=== PATIENT | female | born 1985 | race Two or more races ===

== ENCOUNTER 2019-12-25 13:32 | Inpatient (IN) | payer BC ==
[2019-12-25] MEDS ORDERED: Ondansetron 4 MG/2 ML SDV IVPUSH PRN (13:56)
[2019-12-25] MEDS ORDERED: Sodium Chloride 0.9% 10 ML Syringe FLUSH PRN (13:56)
[2019-12-25] MEDS: Lactated Ringers 1,000 ML IV SCH ×4 (14:10→17:52)
[2019-12-25] MEDS ORDERED: fentaNYL 100 MCG/2 ML SDV EPIDUR PRN (14:18)
[2019-12-25] MEDS ORDERED: diphenhydrAMINE 50 MG/ML SDV IVPUSH PRN (14:18)
[2019-12-25] MEDS ORDERED: ePHEDrine 50 MG/ML SDV IVPUSH PRN (14:18)
[2019-12-25] MEDS ORDERED: Bupivacaine/fentaNYL/NS 100 ML Bag EPIDUR PRN (14:18)
[2019-12-25] MEDS ORDERED: fentaNYL 100 MCG/2 ML SDV ONE (14:20)
--- NOTE | 2019-12-25 14:43 | PCM.PREANE ---
Preanesthetic Assessment - Procedure Proposed Procedure: epidural - Anesthesia/Transfusion/Family Hx Anesthesia History: Prior Anesthesia Without Reaction Family History of Anesthesia Reaction: No Transfusion History: No Prior Transfusion(s) - Review of Systems General: No Symptoms Pulmonary: No Symptoms Cardiovascular: No Symptoms Gastrointestinal: Abdominal Pain (labor) Neurological: No Symptoms Other: Reports: None - Physical Assessment ASA Class: 2 Mental Status: Alert & Oriented x3 Airway Class: Mallampati = 1 Dentition: Reports: Normal Dentition Thyro-Mental Finger Breadths: 3 Mouth Opening Finger Breadths: 3 ROM/Head Extension: Full Lungs: Clear to Auscultation, Normal Respiratory Effort Cardiovascular: Regular Rate, Regular Rhythm - Lab Values: Laboratory Last Values WBC 7.06 K/mm3 (3.98-10.04) 12/25/19 14:09 RBC 3.82 M/mm3 (3.98-5.22) L 12/25/19 14:09 Hgb 12.8 gm/dl (11.2-15.7) 12/25/19 14:09 Hct 36.4 % (34.1-44.9) 12/25/19 14:09 MCV 95.3 fl (79.4-94.8) H D 12/25/19 14:09 MCH 33.5 pg (25.6-32.2) H 12/25/19 14:09 MCHC 35.2 g/dl (32.2-35.5) 12/25/19 14:09 RDW Std Deviation 43.1 fL (36.4-46.3) 12/25/19 14:09 Plt Count 264 K/mm3 (182-369) 12/25/19 14:09 MPV 9.9 fl (9.4-12.3) 12/25/19 14:09 Neut % (Auto) 70.6 % (34.0-71.1) 12/25/19 14:09 Lymph % (Auto) 23.9 % (19.3-51.7) 12/25/19 14:09 [place] % (Auto) 4.8 % (4.7-12.5) 12/25/19 14:09 Eos % (Auto) 0.3 (0.7-5.8) L 12/25/19 14:09 Baso % (Auto) 0.3 % (0.1-1.2) 12/25/19 14:09 Neut # (Auto) 4.98 K/mm3 (1.56-6.13) 12/25/19 14:09 Lymph # (Auto) 1.69 K/mm3 (1.18-3.74) 12/25/19 14:09 [place] # (Auto) 0.34 K/mm3 (0.24-0.36) 12/25/19 14:09 Eos # (Auto) 0.02 K/mm3 (0.04-0.36) L 12/25/19 14:09 Baso # (Auto) 0.02 K/mm3 (0.01-0.08) 12/25/19 14:09 - Allergies Allergies/Adverse Reactions: Allergies Allergy/AdvReac Type Severity Reaction Status Date / Time No Known Allergies Allergy Verified 05/29/19 16:03 - Anesthesia Plan Pre-Op Medication Ordered: None - Acknowledgements Anesthesia Type Planned: Epidural Pt an Appropriate Candidate for the Planned Anesthesia: Yes Alternatives and Risks of Anesthesia Discussed w Pt/Guardian: Yes Pt/Guardian Understands and Agrees with Anesthesia Plan: Yes PreAnesthesia Questionnaire - Past Health History Medical/Surgical History: Denies Medical/Surgical History Gastrointestinal History: Reports: GERD 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 2018 - HOME MEDS Home Medications: Home Meds Ferrous Sulfate [Iron] 325 mg PO DAILY 12/05/19 [History] #103/Iron Fumarate/Fa [ ] 1 each PO DAILY 12/05/19 [ History] metroNIDAZOLE [Flagyl] 500 mg PO BID 12/05/19 [History] - CURRENT (IN HOUSE) MEDS Current Meds: Current Medications Diphenhydramine HCl (Benadryl) 25 mg IVPUSH Q6H PRN PRN Reason: Itching Ephedrine Sulfate (Ephedrine Sulfate) 5 mg IVPUSH ASDIRECTED PRN PRN Reason: HYPOTENTSION Fentanyl (Sublimaze) 100 mcg EPIDUR Q3H PRN PRN Reason: Pain Last Admin: 12/25/19 14:34 Dose: 100 mcg Fentanyl/Bupivacaine HCl (Fentanyl/Bupivacaine/Ns 2 Mcg-0.125% 100 Ml) 100 ml EPIDUR CONTINUOUS PRN PRN Reason: Pain Last Admin: 12/25/19 14:37 Dose: 100 ml Lactated Ringer's (Ringers, Lactated) 1,000 mls @ 100 mls/hr IV ASDIRECTED FINN Last Admin: 12/25/19 14:34 Dose: 999 mls/hr Ondansetron HCl (Zofran) 4 mg IVPUSH Q4H PRN PRN Reason: Nausea/Vomiting Sodium Chloride (Saline Flush) 10 ml FLUSH ASDIRECTED PRN PRN Reason: Keep Vein Open Discontinued Medications Fentanyl (Sublimaze) Confirm Administered Dose 100 mcg .ROUTE .[facility] Stop: 12/25/19 14:21
[2019-12-25] MEDS ORDERED: Calcium Carbonate 500 MG Tab.Chew PO ONE (14:51)
[2019-12-25] MEDS ORDERED: Oxytocin/Lactated Ringers 10 UNIT/1,000 ML BAG IV SCH (16:30)
--- NOTE | 2019-12-25 17:39 | PCM.LDHP ---
L&D History of Present Illness - General Date of Service: 12/25/19 Admit Problem/Dx: Patient Status Order with Admit Dx/Problem 12/25/19 13:57 Patient Status [ADT] Routine Admission Diagnosis/Problem Admission Diagnosis/Problem 12/25/19 17:28 Adriana is a 34-year-old 1 para 0 female presently at 39-3/7 weeks gestational age with an ABAD of 12/29/2019 who is admitted to labor and delivery with spontaneous rupture membranes, active labor and progressive cervical dilation. Source of Information: Patient History Limitations: Reports: No Limitations - History of Present Illness Introduction:: Adriana is a 34-year-old 1 para 0 female presently at 39-3/7 weeks gestational age with an ABAD of 12/29/2019 who is admitted to labor and delivery with spontaneous rupture membranes, active labor and progressive cervical dilation.She reports she had spontaneous rupture membranes this a.m. at approximately 7:00 when she arose out of bed. She has continued to leak amniotic fluid.. She was seen in labor and delivery and was noted to have gross spontaneous rupture membranes with resultant clear amniotic fluid. She is laura upon admission. She is made good cervical change since her last evaluation in clinic. LICENSE ISSUER history: Patient is a 1 para 0. ABAD is 12/29/2019 as based upon an early ultrasound done at 9-3/7 weeks gestational age on 05/29/2019. It is supported by 2 other ultrasounds done on 06/14/2019 and 08/16/2019. Patient had menarche at age 16. Cycles every 30 days. She is using no control to time conception. LMP 03/29/2019. Positive hCG was on 05/03/2019. Patient reports no history of STDs in the past. No abnormal Pap smears noted in the past. course: Patient was seen early in the course of the at 9 weeks and 3 days on 05/29/2019. She is seen on a regular basis during the . She is a centering patient. Her weight gain has been from 182.6 pounds to 196 pounds for approximately a 13 pound gain. Her vital signs and stable throughout the course. Her fundal height growth has been appropriate. She is group B strep negative. She declined the influenza vaccine. She had testing performed which was negative for trisomy 21, 18 and 13. She failed her one-hour glucose tolerance test on 164 mg/dL. Her 3 [place]. Stressed however was within normal limits and patient was felt to not be a gestational diabetic. She plans to breast-feed. She had her T dap immunization on 11/08/2019. She is rubella immune. She declined her flu shot. Laboratory testing and shows her blood to be AB+. Antibody screen is negative. First hemoglobin was 11.4 g/dL. Platelets were 276,000 at that time. She is rubella immune. RPR is nonreactive. Hepatitis B surface antigen and HIV assays were both negative. Chlamydia and gonorrhea were both negative. Second trimester hemoglobin was 10.3 g/dL. Patient was placed on ferrous sulfate which she has continued to the end of the . Her platelet count was 277,000. Her hemoglobin on 12/12/2019 was 12.3 g/dL. Her platelet count was 260,000. Her RPR on 09/24/2019 was nonreactive. Her group B strep screen was negative. Allergies: None Medications: 1. Ferrous sulfate 325 mg by mouth twice a day. 2. vitamins 1 daily Past medical history: Unremarkable Past surgical history: Gastric sleeve surgery for obesity. Family history: Mother is alive and well as is her father. One brother is alive and well. Maternal grandmother is alive but with hypertension on medication. Maternal grandfather is at age 87 from old age. Paternal grandmother is at age 78. Cause unknown. Paternal grandfather is secondary to old age. Age unknown. Maternal aunt with infertility issues. There is no family history of cancer, bleeding or blood clotting disorders, anesthesia related issues or -related issues. Social history: Patient is . She lives in [place]. Her is Jim Lemos. She does not use any significant loss of alcohol, drugs or tobacco. Review of systems: In general patient has no complaints other than spontaneous rupture membranes and contractions. Baby has been active. Skin: Negative Lungs: No infectious symptoms or shortness of breath Cardiovascular: No chest pain or exercise intolerance Breasts: Increase in size and tenderness related to . GI: Negative : Body habitus changes associated with . Musculoskeletal: Negative Neurological: Negative In general the patient is well-developed, well-nourished, pleasant female of stated age in no acute distress. On last evaluation clinic on 12/19/2019 patient's blood pressure was 88/60. Weight was 196 with pre- weight at 182.6 pounds. Height is 5 feet 7. Prepregnancy body mass index was 28.2. heart rate was 152. Skin is warm dry without lesions. HEENT, neck and back within normal limits. Lungs are clear with good breath sounds in all lung mclean. Cardiovascular exam shows regular and rhythm without murmurs. Breasts exam deferred having been done at first visit and found to be normal is not repeated at this time. Breast-feed. Abdomen is gravid with fundal height of 38-1/2 cm on last evaluation clinic. Genital exam per digital exam by nursing staff upon admission shows cervix to be 3 cm dilated, 90% effaced, soft, spell presentation. Gross spontaneous rupture membranes confirmed. Extremities and neurological exam are grossly within normal limits. Pain Score: 8 - Related Data Allergies/Adverse Reactions: Allergies Allergy/AdvReac Type Severity Reaction Status Date / Time No Known Allergies Allergy Verified 05/29/19 16:03 Home Medications: Home Meds Ferrous Sulfate [Iron] 325 mg PO DAILY 12/05/19 [History] #103/Iron Fumarate/Fa [ ] 1 each PO DAILY 12/05/19 [ History] Past Medical History - Past Health History Medical/Surgical History: Denies Medical/Surgical History Gastrointestinal History: Reports: GERD LICENSE ISSUER History: Reports: Other (See Below) Other OB/BYN History: x1 miscarriage 2018 - Past Surgical History GI Surgical History: Reports: Other (See Below) Other GI Surgeries/Procedures: gastric sleeve surgery Social & Family History - Family History Family Medical History: Noncontributory - Tobacco Use Smoking Status *Q: Never Smoker Second Hand Smoke Exposure: No - Caffeine Use Caffeine Use: Reports: Coffee - Recreational Drug Use Recreational Drug Use: No H&P Review of Systems - Review of Systems: Review Of Systems: See Below L&D Exam - Exam Exam: See Below - Vital Signs Vital Signs: Last Vital Signs Temp 36.6 C 12/25/19 14:30 Pulse 74 12/25/19 14:30 Resp 18 12/25/19 14:30 BP 127/85 12/25/19 14:30 Pulse Ox 97 12/25/19 14:30 Weight: 90.265 kg - Patient Data Lab Results Last 24 hrs: Laboratory Results - last 24 hr 12/25/19 Range/Units 14:09 WBC 7.06 (3.98-10.04) K/mm3 RBC 3.82 L (3.98-5.22) M/mm3 Hgb 12.8 (11.2-15.7) gm/dl Hct 36.4 (34.1-44.9) % MCV 95.3 H D (79.4-94.8) fl MCH 33.5 H (25.6-32.2) pg MCHC 35.2 (32.2-35.5) g/dl RDW Std Deviation 43.1 (36.4-46.3) fL Plt Count 264 (182-369) K/mm3 MPV 9.9 (9.4-12.3) fl Neut % (Auto) 70.6 (34.0-71.1) % Lymph % (Auto) 23.9 (19.3-51.7) % [place] % (Auto) 4.8 (4.7-12.5) % Eos % (Auto) 0.3 L (0.7-5.8) Baso % (Auto) 0.3 (0.1-1.2) % Neut # (Auto) 4.98 (1.56-6.13) K/mm3 Lymph # (Auto) 1.69 (1.18-3.74) K/mm3 [place] # (Auto) 0.34 (0.24-0.36) K/mm3 Eos # (Auto) 0.02 L (0.04-0.36) K/mm3 Baso # (Auto) 0.02 (0.01-0.08) K/mm3 Result Diagrams: 12/25/19 14:09 Problem List Initiated/Reviewed/Updated: Yes Orders Last 24hrs: Active Orders 24 hr Category Date Time Status Patient Status [ADT] Routine ADT 12/25/19 13:57 Active Activity as Tolerated [RC] PFP Care 12/25/19 13:57 Active Communication Order [RC] ASDIRECTED Care 12/25/19 13:57 Active Communication Order [RC] ASDIRECTED Care 12/25/19 14:18 Active Cooling Warming Measures [RC] ASDIRECTED Care 12/25/19 14:18 Active Heart Tones [RC] ASDIRECTED Care 12/25/19 13:57 Active Non Stress Test [RC] PER UNIT ROUTINE Care 12/25/19 13:57 Active Notify Provider [RC] ASDIRECTED Care 12/25/19 14:18 Active Notify Provider [RC] PFP Care 12/25/19 13:57 Active Notify Provider [RC] PRN Care 12/25/19 13:57 Active Oxygen Therapy [RC] ASDIRECTED Care 12/25/19 14:18 Active Peripheral IV Care [RC] . DIRECTED Care 12/25/19 13:57 Active Pulse Oximetry [RC] ASDIRECTED Care 12/25/19 14:18 Active Pump Management, Intrathecal [RC] ASDIRECTED Care 12/25/19 13:58 Active Urinary Catheter Assessment [RC] ASDIRECTED Care 12/25/19 13:56 Active Vital Signs [RC] PER UNIT ROUTINE Care 12/25/19 13:57 Active Vital Signs [RC] Q15M Care 12/25/19 14:18 Active Regular Diet [DIET] Diet 12/25/19 Dinner Active RAPID PLASMA REAGIN,RPR [CHEM] Routine Lab 12/25/19 14:09 Received Bupivacaine/fentaNYL/NS [fentaNYL/Bupivacaine/NS 2 MCG- Med 12/25/19 14:18 Active 0.125% 100 ML] 100 ml EPIDUR CONTINUOUS PRN Lactated Ringers [Ringers, Lactated] 1,000 ml Med 12/25/19 14:00 Active IV ASDIRECTED Ondansetron [Zofran] Med 12/25/19 13:56 Active 4 mg IVPUSH Q4H PRN Oxytocin/Lactated Ringers [Pitocin in LR 10 Units/1,000 Med 12/25/19 16:30 Active ML] 10 unit in 1,000 ml IV ASDIRECTED Sodium Chloride 0.9% [Saline Flush] Med 12/25/19 13:56 Active 10 ml FLUSH ASDIRECTED PRN diphenhydrAMINE [Benadryl] Med 12/25/19 14:18 Active 25 mg IVPUSH Q6H PRN ePHEDrine [ePHEDrine sulfate] Med 12/25/19 14:18 Active 5 mg IVPUSH ASDIRECTED PRN fentaNYL [Sublimaze] Med 12/25/19 14:18 Active 100 mcg EPIDUR Q3H PRN Electronic Heart Tones Ext w TOCO [WOMSER] Oth 12/25/19 13:57 Ordered Routine Electronic Heart Tones Internal [WOMSER] Per Unit Oth 12/25/19 13:57 Ordered Routine Peripheral IV Insertion Adult [OM.PC] Routine Oth 12/25/19 13:57 Ordered Resuscitation Status Routine Resus Stat 12/25/19 13:56 Ordered Medication Orders Diphenhydramine HCl (Benadryl) 25 mg IVPUSH Q6H PRN PRN Reason: Itching Ephedrine Sulfate (Ephedrine Sulfate) 5 mg IVPUSH ASDIRECTED PRN PRN Reason: HYPOTENTSION Fentanyl (Sublimaze) 100 mcg EPIDUR Q3H PRN PRN Reason: Pain Last Admin: 12/25/19 14:34 Dose: 100 mcg Fentanyl/Bupivacaine HCl (Fentanyl/Bupivacaine/Ns 2 Mcg-0.125% 100 Ml) 100 ml EPIDUR CONTINUOUS PRN PRN Reason: Pain Last Admin: 12/25/19 14:37 Dose: 100 ml Lactated Ringer's (Ringers, Lactated) 1,000 mls @ 100 mls/hr IV ASDIRECTED FINN Last Admin: 12/25/19 16:08 Dose: 999 mls/hr Infusion: 12/25/19 15:35 Dose: 999 mls/hr Admin: 12/25/19 14:34 Dose: 999 mls/hr Infusion: 12/25/19 14:34 Dose: 999 mls/hr Admin: 12/25/19 14:10 Dose: 999 mls/hr Oxytocin/Lactated Ringer's (Pitocin In Lr 10 Units/1,000 Ml) 10 unit in 1,000 mls @ 3,000 mls/hr IV ASDIRECTED FINN; Protocol Ondansetron HCl (Zofran) 4 mg IVPUSH Q4H PRN PRN Reason: Nausea/Vomiting Sodium Chloride (Saline Flush) 10 ml FLUSH ASDIRECTED PRN PRN Reason: Keep Vein Open Assessment/Plan Comment:: 1. 39-3/7 week intrauterine , spontaneous rupture membranes, active labor, progressive cervical dilation upon admission. 2. Generally reassuring heart tones 3. Group B strep screen is negative. 4. Patient desires epidural in labor and delivery. 5. Patient plans to breast feed. 6. Patient is status post gastric sleeve surgery for weight loss. 7. She is rubella immune. 8. Patient has received her T Dap immunization during . Plan: 1. Anticipate normal spontaneous vaginal delivery 2. Epidural when necessary for pain in labor 3. Routine labor care 4. Support nursing decision 5. RPR and CBC upon admission per protocol.
--- NOTE | 2019-12-25 18:56 | PCM.SN ---
- Free Text/Narrative Note: Delivery note: Adriana is a 34-year-old 1 para 0 female presently at 39-3/7 weeks gestational age with an ABAD of 12/29/2019 who is admitted to labor and delivery with spontaneous rupture membranes, active labor and progressive cervical dilation. Adriana is a 34-year-old 1 now para 1001 female who presented at 39-3/7 weeks gestational age in active labor. She progressed relatively rapidly to complete cervical dilation by approximately 1730 hrs. on 12/25/2019. She had an epidural placed for labor analgesia. She had good results with this therapy. As patient pushed she began having some severe variable decelerations down into this 56 to 70s range. These occasionally last for 1-2 minutes in length. Decision was made to offer the patient options of intervention including vacuum extraction. Vacuum extraction procedure, risks, benefits, alternatives of care including section discussed quickly and in detail with the patient and her . They appear to understand and wish to proceed with the decision to provide vacuum extraction assistance. Vacuum extractor was placed during the course of the contraction and with the next contraction the baby was delivered at 1827 hrs on 12/25/2019. Small episiotomy midline was made. No episiotomy extensions were noted. [place] female infant was delivered in a right occiput anterior position. The baby weighed 3510 g (7 lbs. 12 oz.), had Apgars of 8 and 9 and was 19-1/2 inches in length. No pop offs are noted and the baby delivered within one contraction. Patient pushed well. The baby is noted to have a nuchal cord 1moderately tight but reducible over the baby's head. Shoulder cord was also noted. The down over the baby's body. Baby was placed on mom's abdomen. Nose and mouth were bulb suctioned and baby was dried. Pitocin was started for IV to facilitate increase in uterine tone and reduce risk of bleeding. The cord was allowed to pulsate times possibly 2-3 minutes. His then clamped 2 and cut by the baby's father Jim. Was obtained. Patient was noted to have small medial ring lacerations 2 these were each repaired with a single figure- of-eight suture of 3-0 Monocryl. The episiotomy site was repaired with 3-0 Monocryl in a routine fashion. Patient heart this well. Epidural analgesia was used for perineal anesthesia. The placenta delivered at 1833 hrs. in a [place] presentation, appeared intact and complete and was discarded per patient desire. Estimated blood loss was 100 mL. Patient plans to breast-feed. Condition: Good.
[2019-12-25] MEDS ORDERED: Witch Hazel Medicated Pads 40/Jar TOP PRN (19:14)
[2019-12-25] MEDS ORDERED: Acetaminophen 325 MG Tab PO PRN (19:14)
[2019-12-25] MEDS ORDERED: Benzocaine/Menthol 20%-0.5% Spray 56 GM Canister TOP PRN (19:14)
[2019-12-25] MEDS: Docusate Sodium 100 MG Cap PO PRN (20:01)
[2019-12-25] MEDS: Ibuprofen 600 MG Tab PO PRN (20:01)
[2019-12-25] MEDS ORDERED: Bupivacaine 0.25% 10 ML SDV ONE (23:55)
--- NOTE | 2019-12-26 08:27 | PCM.SN ---
- Free Text/Narrative Note: note: Patient is doing well in the period. Minimal lochia, voiding well, ambulated without problems. Nursing without concerns. Patient is afebrile, vital signs are stable Abdomen is flat, soft, uterus is below the umbilicus and is firm and nontender. Legs are nontender. Assessment: recovery going well. Plan: Routine care. Patient be discharged home within the next 24-48 hours.
[2019-12-26] MEDS: Prenatal Multivitamin with Calcium/Folic Acid/Iron Tab PO SCH (19:20)
[2019-12-26] MEDS: Ibuprofen 600 MG Tab PO PRN (20:16)
[2019-12-26] MEDS: Docusate Sodium 100 MG Cap PO PRN (20:17)
--- NOTE | 2019-12-27 06:12 | PCM.DCSUM1 ---
Discharge Summary - Hospital Course Free Text/Narrative:: Adriana is a 34-year-old 1 para 0 female presently at 39-3/7 weeks gestational age with an ABAD of 12/29/2019 who is admitted to labor and delivery with spontaneous rupture membranes, active labor and progressive cervical dilation. Adriana is a 34-year-old 1 now para 1001 female who presented at 39-3/7 weeks gestational age in active labor. She progressed relatively rapidly to complete cervical dilation by approximately 1730 hrs. on 12/25/2019. She had an epidural placed for labor analgesia. She had good results with this therapy. As patient pushed she began having some severe variable decelerations down into this 56 to 70s range. These occasionally last for 1-2 minutes in length. Decision was made to offer the patient options of intervention including vacuum extraction. Vacuum extraction procedure, risks, benefits, alternatives of care including section discussed quickly and in detail with the patient and her . They appear to understand and wish to proceed with the decision to provide vacuum extraction assistance. Vacuum extractor was placed during the course of the contraction and with the next contraction the baby was delivered at 1827 hrs on 12/25/2019. Small episiotomy midline was made. No episiotomy extensions were noted. Larson female was delivered in a right occiput anterior position. The baby weighed 3510 g (7 lbs. 12 oz.), had Apgars of 8 and 9 and was 19-1/2 inches in length. No pop offs are noted and the baby delivered within one contraction. Patient pushed well. The baby is noted to have a nuchal cord 1moderately tight but reducible over the baby's head. Shoulder cord was also noted. The down over the baby's body. Baby was placed on mom's abdomen. Nose and mouth were bulb suctioned and baby was dried. Pitocin was started for IV to facilitate increase in uterine tone and reduce risk of bleeding. The cord was allowed to pulsate times possibly 2-3 minutes. His then clamped 2 and cut by the baby's father Jim. Was obtained. Patient was noted to have small medial ring lacerations 2 these were each repaired with a single figure- of-eight suture of 3-0 Monocryl. The episiotomy site was repaired with 3-0 Monocryl in a routine fashion. Patient heart this well. Epidural analgesia was used for perineal anesthesia. The placenta delivered at 1833 hrs. in a Espinosa presentation, appeared intact and complete and was discarded per patient desire. Estimated blood loss was 100 mL. patient is done very well. She is ambulating well, has minimal lochia , is nursing without problems and is voiding without concerns. She is requesting discharge home today. Condition: Good. Diagnosis: Stroke: No - Discharge Data Discharge Date: 12/27/19 Discharge Disposition: Home, Self-Care 01 Condition: Good - Referral to Home Health Primary Care Physician: Neal Alas MD - Patient Instructions Diet: Regular Diet as Tolerated (Nursing diet was increased calories and calcium as recommended) Activity: As Tolerated Driving: May Drive Today Showering/Bathing: May Shower (May take a bath) Notify Provider of: Fever, Increased Pain, Swelling and Redness, Nausea and/or Vomiting - Discharge Plan Home Medications: Home Meds Ferrous Sulfate [Iron] 325 mg PO DAILY 12/05/19 [History] #103/Iron Fumarate/Fa [ ] 1 each PO DAILY 12/05/19 [ History] Acetaminophen [Tylenol] 650 mg PO Q4H PRN tablet 12/27/19 [Rx] Ibuprofen [Motrin] 600 mg PO Q4H PRN tablet 12/27/19 [Rx] Referrals: Neal Alas MD [Primary Care Provider] - (Return to clinicDr. Alas or Addis rouse, nurse practitioner-2 weeks.) - Discharge Summary/Plan Comment DC Time >30 min.: No Discharge Summary/Plan Comment: Discharge instructions: 1. Discharge home 2. Diet, activity and follow-up discussed with patient. Recommend nursing diet with increased calories and calcium. 3. Precautions given concern increased pain, bleeding, temperature, signs/ symptoms of DVT/PE. 4. Medications per home medication was printed, discussed with and given to the patient. 5. Return to clinic-Dr. Alas or Addis Rouse[facility] in 2 weeks. Diagnosis: Term -delivered Condition: Good - Patient Data Vitals - Most Recent: Last Vital Signs Temp 36.7 C 12/27/19 02:34 Pulse 72 12/27/19 02:34 Resp 14 12/27/19 02:34 BP 119/90 02/27/20 02:34 Pulse Ox 97 12/27/19 02:34 Weight - Most Recent: 90.265 kg I&O - Last 24 hours: Intake & Output 12/26/19 12/26/19 12/27/19 14:59 22:59 06:59 Intake Total 360 Balance 360 Med Orders - Current: Current Medications Acetaminophen (Tylenol) 650 mg PO Q4H PRN PRN Reason: mild pain or fever Benzocaine/Menthol (Dermoplast Pain Relief Williamson) 0 gm TOP ASDIRECTED PRN PRN Reason: Perineal Comfort Measure Last Admin: 12/25/19 20:04 Dose: 1 canister Docusate Sodium (Colace) 100 mg PO BID PRN PRN Reason: Constipation Last Admin: 12/26/19 20:17 Dose: 100 mg Ibuprofen (Motrin) 600 mg PO Q4H PRN PRN Reason: Mild pain or fever Last Admin: 12/26/19 20:16 Dose: 600 mg Prenat Multivit/Surry/Iron/Folic Ac ( Plus Iron) 1 each PO DAILY FINN Last Admin: 12/26/19 19:20 Dose: Not Given Witch Muriel (Tucks) 1 pad TOP ASDIRECTED PRN PRN Reason: Pain Last Admin: 12/25/19 20:04 Dose: 1 tub Discontinued Medications Bupivacaine HCl (Sensorcaine-Mpf 0.25%) 10 ml .ROUTE .STK-MED ONE Stop: 12/25/19 23:56 Calcium Carbonate/Glycine (Tums) 1,000 mg PO ONETIME ONE Stop: 12/25/19 14:52 Last Admin: 12/26/19 00:27 Dose: Not Given Diphenhydramine HCl (Benadryl) 25 mg IVPUSH Q6H PRN PRN Reason: Itching Ephedrine Sulfate (Ephedrine Sulfate) 5 mg IVPUSH ASDIRECTED PRN PRN Reason: HYPOTENTSION Fentanyl (Sublimaze) 100 mcg EPIDUR Q3H PRN PRN Reason: Pain Last Admin: 12/25/19 14:34 Dose: 100 mcg Fentanyl (Sublimaze) Confirm Administered Dose 100 mcg .ROUTE .STK-MED ONE Stop: 12/25/19 14:21 Last Admin: 12/26/19 00:27 Dose: Not Given Fentanyl/Bupivacaine HCl (Fentanyl/Bupivacaine/Ns 2 Mcg-0.125% 100 Ml) 100 ml EPIDUR CONTINUOUS PRN PRN Reason: Pain Last Admin: 12/25/19 14:37 Dose: 100 ml Lactated Ringer's (Ringers, Lactated) 1,000 mls @ 100 mls/hr IV ASDIRECTED FINN Last Admin: 12/25/19 17:52 Dose: 999 mls/hr Oxytocin/Lactated Ringer's (Pitocin In Lr 10 Units/1,000 Ml) 10 unit in 1,000 mls @ 3,000 mls/hr IV ASDIRECTED FINN; Protocol Last Admin: 12/25/19 18:36 Dose: 500 munits/min, 3,000 mls/hr Ondansetron HCl (Zofran) 4 mg IVPUSH Q4H PRN PRN Reason: Nausea/Vomiting Sodium Chloride (Saline Flush) 10 ml FLUSH ASDIRECTED PRN PRN Reason: Keep Vein Open
[2019-12-27] MEDS: Prenatal Multivitamin with Calcium/Folic Acid/Iron Tab PO SCH (08:33)
== END 2019-12-27 10:30 | disposition home or self-care (01) | DRG 560 ==
LOC: JD.OBCHECK 13:32 → JD.OB 13:35 → JD.OBCHECK 13:56 → JD.OB 13:57 → OBSVTOIN 18:56
PROVIDERS: ADMIT Obstetrics & Gynecology; ATTEND Obstetrics & Gynecology
PROC: 10D07Z6 Extraction of Products of Conception, Vacuum, Via Natural or Artificial Opening (ICD-10-PCS; principal; 2019-12-25)
PROC: 0W8NXZZ Division of Female Perineum, External Approach (ICD-10-PCS; 2019-12-25)
PROC: 3E0R3BZ Introduction of Anesthetic Agent into Spinal Canal, Percutaneous Approach (ICD-10-PCS; 2019-12-25)
DX: O76 Abnormality in fetal heart rate and rhythm complicating labor and delivery (principal); O69.1XX0 Labor and delivery complicated by cord around neck, with compression, not applicable or unspecified; Z3A.39 39 weeks gestation of pregnancy; Z37.0 Single live birth; Z79.899 Other long term (current) drug therapy
CPT/HCPCS: 36415; 51702; 59025; 59409; 85025; 86592; A9270-GY; J2590; J3010; J3490; J7120

== ENCOUNTER 2021-03-14 02:51 | Inpatient (IN) | payer BC, OTHER ==
--- NOTE | 2021-03-13 22:28 | PCM.LDHP ---
L&D History of Present Illness - General Date of Service: 03/14/21 Admit Problem/Dx: Admission Diagnosis/Problem Admission Diagnosis/Problem 03/13/21 22:19 Adriana is a 35-year-old 2 para 1-0-0-1 female presently at 39-3/7 weeks gestational age with an ABAD of 03/18/2021 was admitted for elective induction of labor. Source of Information: Patient History Limitations: Reports: No Limitations - History of Present Illness Introduction:: Adriana is a 35-year-old 2 para 1-0-0-1 female presently at 39-3/7 weeks gestational age with an ABAD of 03/18/2021 was admitted for elective induction of labor. The procedure and process of labor delivery, its risks, benefits, limitations, alternatives of care including allowing for natural onset of labor all discussed with patient treatment. She appears understand and wishes to proceed. 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 Patient had menarche at approximately 15 years of age. Cycles occur q. monthly. Her LMP was certain at 06/11/2020 onset. No control being used at the time of conception. Patient denies any STIs or abnormal Pap smears. Her first delivered on 12/25/2019 at 39-3/7 weeks gestational age after 8 hours of labor. Baby weighed 7 pounds 12 ounces, was female and was delivered via vacuum extraction delivery. She had an epidural analgesia for that labor. She delivered at [facility]. She had a first-degree laceration with repair. Baby's name is Sonia. course. Patient was initially seen at 12 weeks and 1 day on 09/04/2020. She was seen on a very regular basis throughout the course the . Her vital signs remained stable throughout the . Her weight gain was from 173.2 pounds up to 198 pounds for approximately 24.7 pound increase. Fundal height growth was appropriate for gestational age. Patient underwent ultrasounds x3 with first ultrasound at 12 and 2 7 weeks gestational age. All ultrasounds were consistent with dates. Patient had her Tdap on 12/24/2020. She is rubella immune. She desires epidural for labor analgesia. Group B strep screen is negative. She has a history of gastric sleeve surgery. She plans to breast-feed. She had a prequel test which was negative for trisomy 21, 18 and 13. labs: Blood is a be positive with negative antibody screen. First alyssa hemoglobin was 12.2 g/dL. Her platelet count was 324,000. She is rubella immune. RPR is nonreactive. Urine culture at first visit was negative. Hepatitis B surface antigen and HIV assays were both negative as were her chlamydia and gonorrhea. Second trimester hemoglobin was 9.8 g/dL and patient was started on ferrous sulfate 325 mg p.o. twice daily in addition to her vitamins. Platelets were 284,000 at that time and her 1 hour GTT was normal at 110. RPR and 12/24/2020 was nonreactive. Group B strep screen was negative. Allergies: None Medications: 1. Ferrous sulfate 3 and 25 mg p.o. twice daily 2. vitamins 1 p.o. daily. Past medical history: 1. Vaginal vacuum extraction delivery on 12/25/2019. Past surgical history: 1. Gastric sleeve surgery. Family history: Mother and father are both alive and well. 1 brother is alive and well. Maternal grandmother is alive but with hypertension on medications. Maternal grandfather is at age 87 years. Paternal grandmother at age 78. Paternal grandfather from old age. Maternal aunt with infertility issues. There is no family history of cancer, bleeding, blood clotting, anesthesia or related disorders. Social history: Patient is . She works at the [employer]. She lives in [place]. Her is Jim. 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 Review of systems: In general patient has no complaints. Baby has been active. No significant contractions noted. Skin: Negative Lungs: No infectious symptoms or shortness of breath Cardiovascular: No chest pain or exercise intolerance Breasts: No lumps, changes in size, pain, dimpling, discharge or axillary or supraclavicular concerns. GI: Negative : Changes associated . Musculoskeletal: Negative Neurological: Negative Physical exam: In general the patient is well-developed, well-nourished, pleasant female of stated age in no acute distress. Skin is warm dry without lesions. HEENT, neck and back within normal limits. Lungs are clear with good breath sounds in all lung mclean. Cardiovascular exam shows regular and rhythm without murmurs. Breast exam is deferred having been done at first visit and found to be normal is not repeated at this time. Abdomen is gravid with last fundal height at 39 cm. Baby in vertex presentation.. Genital per digital exam shows cervix to be 2 cm, 70% effaced, -3 station, soft, mid position. Extremities and neurological exam are grossly within normal limits. 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 2018 - Past Surgical History GI Surgical History: Reports: Other (See Below) Other GI Surgeries/Procedures: gastric sleeve surgery Social & Family History - Family History Family Medical History: No Pertinent Family History - Caffeine Use Caffeine Use: Reports: Coffee H&P Review of Systems - Review of Systems: Review Of Systems: See Below L&D Exam - Exam Exam: See Below - Problem List (1) 39 weeks gestation of SNOMED Code(s): 57703716 ICD Code: Z3A.39 - 39 WEEKS GESTATION OF Status: Acute Problem List Initiated/Reviewed/Updated: Yes Assessment/Plan Comment:: 1.Adriana is a 35-year-old 2 para 1-0-0-1 female presently at 39-3/7 weeks gestational age with an ABAD of 03/18/2021 was admitted for elective induction of labor. 2. Group B strep screen negative 3. Patient plans to breast-feed 4. Patient desires epidural in labor. 5. Risk factors include history of gastric sleeve surgery Plan: 1. Induction of labor with Pitocin initially followed by AROM. 2. Support breast-feeding decision 3. Epidural for patient's labor analgesia 4. Anticipate . 5. Routine admit labs consist of COVID-19, RPR, CBC including platelet count.
[~2021-03-14 02:51] MED LIST: Bupivacaine 0.25% 10 ML SDV ONE
[2021-03-14] MEDS ORDERED: Calcium Carbonate 500 MG Tab.Chew PO PRN (02:59)
[2021-03-14] MEDS ORDERED: Nalbuphine 10 MG/1 ML Vial IVPUSH PRN (02:59)
[2021-03-14] MEDS ORDERED: Ondansetron 4 MG/2 ML SDV IVPUSH PRN (02:59)
[2021-03-14] MEDS ORDERED: Acetaminophen 325 MG Tab PO PRN ×2 (02:59→14:22)
[2021-03-14] MEDS ORDERED: Sodium Chloride 0.9% 10 ML Syringe FLUSH PRN (02:59)
[2021-03-14] MEDS ORDERED: Oxytocin/Lactated Ringers 10 UNIT/1,000 ML BAG IV SCH ×2 (03:00)
[2021-03-14] MEDS: Lactated Ringers 1,000 ML IV SCH ×4 (03:58→10:41)
[2021-03-14] MEDS ORDERED: fentaNYL 100 MCG/2 ML SDV EPIDUR PRN (09:41)
[2021-03-14] MEDS ORDERED: ePHEDrine 50 MG/ML SDV IVPUSH PRN (09:41)
[2021-03-14] MEDS ORDERED: Bupivacaine/fentaNYL/NS 100 ML Bag EPIDUR PRN (09:41)
[2021-03-14] MEDS ORDERED: diphenhydrAMINE 50 MG/ML SDV IVPUSH PRN (09:41)
--- NOTE | 2021-03-14 09:56 | PCM.SN.2 ---
- Free Text/Narrative Note: Patient is laura approximately every 2 to 3 minutes. Cervix is 3+ centimeters dilated. 90% effaced, -2 station, mid position to anterior, soft, cephalic presentation. AROM undertaken with resultant clear amniotic fluid. Pitocin per IV. FHRreassuring with good accelerations and no decelerations. Assessment/plan: Adequate progression of labor. Heart tones reassuring. Proceed with epidural as desired by patient and anticipate .
--- NOTE | 2021-03-14 12:02 | PCM.PREANE ---
Preanesthetic Assessment - Procedure Proposed Procedure: Labor Epidural - Anesthesia/Transfusion/Family Hx Anesthesia History: Prior Anesthesia Without Reaction Family History of Anesthesia Reaction: No Transfusion History: No Prior Transfusion(s) - Review of Systems General: No Symptoms Pulmonary: No Symptoms Cardiovascular: No Symptoms Gastrointestinal: Abdominal Pain (Contractions), Other (GERD/ History of Gastric Sleeve ) Neurological: No Symptoms Other: Reports: None - Physical Assessment Vital Signs: Last Vital Signs Temp 36.2 C 03/14/21 03:07 Pulse 64 03/14/21 03:07 Resp 16 03/14/21 03:07 BP 125/82 03/14/21 03:07 Pulse Ox 100 03/14/21 03:07 Height: 1.73 m Weight: 90.265 kg ASA Class: 2 Mental Status: Alert & Oriented x3 Airway Class: Mallampati = 1 Dentition: Reports: Normal Dentition Thyro-Mental Finger Breadths: 3 Mouth Opening Finger Breadths: 3 ROM/Head Extension: Full Lungs: Clear to Auscultation, Normal Respiratory Effort Cardiovascular: Regular Rate, Regular Rhythm - Lab Values: Laboratory Last Values WBC 5.16 K/mm3 (3.98-10.04) 03/14/21 03:14 RBC 3.63 M/mm3 (3.98-5.22) L 03/14/21 03:14 Hgb 12.0 gm/dl (11.2-15.7) D 03/14/21 03:14 Hct 35.8 % (34.1-44.9) 03/14/21 03:14 MCV 98.6 fl (79.4-94.8) H 03/14/21 03:14 MCH 33.1 pg (25.6-32.2) H 03/14/21 03:14 MCHC 33.5 g/dl (32.2-35.5) 03/14/21 03:14 RDW Std Deviation 45.5 fL (36.4-46.3) 03/14/21 03:14 Plt Count 265 K/mm3 (182-369) 03/14/21 03:14 MPV 9.3 fl (9.4-12.3) L 03/14/21 03:14 Neut % (Auto) 58.1 % (34.0-71.1) 03/14/21 03:14 Lymph % (Auto) 35.3 % (19.3-51.7) 03/14/21 03:14 [place] % (Auto) 5.2 % (4.7-12.5) 03/14/21 03:14 Eos % (Auto) 0.6 (0.7-5.8) L 03/14/21 03:14 Baso % (Auto) 0.4 % (0.1-1.2) 03/14/21 03:14 Neut # (Auto) 3.00 K/mm3 (1.56-6.13) 03/14/21 03:14 Lymph # (Auto) 1.82 K/mm3 (1.18-3.74) 03/14/21 03:14 [place] # (Auto) 0.27 K/mm3 (0.24-0.36) 03/14/21 03:14 Eos # (Auto) 0.03 K/mm3 (0.04-0.36) L 03/14/21 03:14 Baso # (Auto) 0.02 K/mm3 (0.01-0.08) 03/14/21 03:14 SARS-CoV-2 RNA (MORGAN) Negative (NEGATIVE) 03/14/21 03:14 Blood Type AB POSITIVE 03/14/21 03:14 Gel Antibody Screen Negative 03/14/21 03:14 - Allergies Allergies/Adverse Reactions: Allergies Allergy/AdvReac Type Severity Reaction Status Date / Time No Known Allergies Allergy Verified 03/14/21 02:59 - Anesthesia Plan Pre-Op Medication Ordered: None - Acknowledgements Anesthesia Type Planned: Epidural Pt an Appropriate Candidate for the Planned Anesthesia: Yes Alternatives and Risks of Anesthesia Discussed w Pt/Guardian: Yes Pt/Guardian Understands and Agrees with Anesthesia Plan: Yes PreAnesthesia Questionnaire - Past Health History Medical/Surgical History: Denies Medical/Surgical History Gastrointestinal History: Reports: 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 OB/BYN History: x1 miscarriage 2018 - Past Surgical History GI Surgical History: Reports: Other (See Below) Other GI Surgeries/Procedures: gastric sleeve surgery - SUBSTANCE USE Tobacco Use Status *Q: Never Tobacco User Second Hand Smoke Exposure: No Recreational Drug Use History: No - HOME MEDS Home Medications: Home Meds Ferrous Sulfate [Iron] 325 mg PO BID 12/05/19 [History] #103/Iron Fumarate/Fa [ ] 1 each PO DAILY 12/05/19 [History] - CURRENT (IN HOUSE) MEDS Current Meds: Current Medications Acetaminophen (Acetaminophen 325 Mg Tab) 650 mg PO Q4H PRN PRN Reason: Pain (Mild 1-3) and fever Calcium Carbonate/Glycine (Calcium Carbonate 500 Mg Tab.Chew) 1,000 mg PO Q2H PRN PRN Reason: Indigestion Diphenhydramine HCl (Diphenhydramine 50 Mg/Ml Sdv) 25 mg IVPUSH Q6H PRN PRN Reason: pruritis Ephedrine Sulfate (Ephedrine 50 Mg/Ml Sdv) 5 mg IVPUSH ASDIRECTED PRN PRN Reason: Hypotension Fentanyl (Fentanyl 100 Mcg/2 Ml Sdv) 100 mcg EPIDUR Q3H PRN PRN Reason: Pain Last Admin: 03/14/21 10:01 Dose: 100 mcg Documented by: Fentanyl/Bupivacaine HCl (Bupivacaine/Fentanyl/Ns 100 Ml Bag) 100 ml EPIDUR ASDIRECTED PRN PRN Reason: Pain Last Admin: 03/14/21 10:02 Dose: 100 ml Documented by: Oxytocin/Lactated Ringer's (Pitocin In Lr 10 Units/1,000 Ml) 10 unit in 1,000 mls @ 12 mls/hr IV TITRATE FINN; Protocol Last Titration: 03/14/21 10:44 Dose: 8 munits/min, 48 mls/hr Documented by: Oxytocin/Lactated Ringer's (Pitocin In Lr 10 Units/1,000 Ml) 10 unit in 1,000 mls @ 500 mls/hr IV .CONTINUOUS FINN Lactated Ringer's (Ringers, Lactated) 1,000 mls @ 100 mls/hr IV ASDIRECTED FINN Last Infusion: 03/14/21 10:42 Dose: 100 mls/hr Documented by: Nalbuphine HCl (Nalbuphine 10 Mg/1 Ml Vial) 10 mg IVPUSH Q2H PRN PRN Reason: Pain Ondansetron HCl (Ondansetron 4 Mg/2 Ml Sdv) 4 mg IVPUSH Q4H PRN PRN Reason: Nausea/Vomiting Sodium Chloride (Sodium Chloride 0.9% 10 Ml Syringe) 10 ml FLUSH ASDIRECTED PRN PRN Reason: Keep Vein Open
--- NOTE | 2021-03-14 13:25 | PCM.SN.2 ---
- Free Text/Narrative Note: Delivery note: Stage I: Adriana is a 35-year-old 2 now para 2-0-0-2 female admitted at 39-3/7 weeks gestational age with an ABAD of 03/18/2021 was admitted for elective induction of labor. Induction of labor was initiated with Pitocin followed by AROM with resultant clear amniotic fluid. Patient made very good progress. She underwent epidural for labor analgesia. heart tones were reassuring. Contractions intensified with AROM. She progressed to complete cervical dilation by approximately 1250 hrs. on 03/14/2021. Stage II: Zhanna delivered a viable, larson, female named Clemencia Peterson in a left occiput anterior position. The baby was placed on mom's abdomen and umbilical cord was allowed to pulsate for approximately 3 minutes before clamping and cutting. The cord was cut by the patient was Jim. Baby's nose and mouth were bulb suctioned and the baby was dried with warm b lanket. Shortly after delivery and after cord was clamped the baby went skin to skin with mom. Cord blood obtained. Umbilical cord had 3 vessels. The baby delivered at 12:59 PM on 03/14/2021. Apgars were 8 and 9. Weight was 3200 grams (7pounds, 1 ounces). There was a first-degree laceration which was repaired with a single [id number] suture of 0 Monocryl. Epidural analgesia was used for perineal laceration repair anesthesia. Patient tolerated this very well. Stage III: The placenta delivered at 1303 hrs. in a Schultze presentation, appeared intact and complete and was discarded per patient desire. Estimated blood loss was 250 cc. Condition: Good. Patient plans to breast-feed.
[2021-03-14] MEDS ORDERED: Witch Hazel Medicated Pads 40/Jar TOP PRN (14:22)
[2021-03-14] MEDS ORDERED: Docusate Sodium 100 MG Cap PO PRN (14:22)
[2021-03-14] MEDS ORDERED: Benzocaine/Menthol 20%-0.5% Spray 56 GM Canister TOP PRN (14:22)
[2021-03-14] MEDS: Ibuprofen 600 MG Tab PO PRN ×2 (15:14→20:41)
--- NOTE | 2021-03-15 06:05 | PCM48HPAN ---
Post Anesthesia Note - EVALUATION WITHIN 48HRS OF ANESTHETIC Vital Signs in Normal Range: Yes Patient Participated in Evaluation: Yes Respiratory Function Stable: Yes Airway Patent: Yes Cardiovascular Function Stable: Yes Hydration Status Stable: Yes Pain Control Satisfactory: Yes Nausea and Vomiting Control Satisfactory: Yes Mental Status Recovered: Yes Vital Signs: Last Vital Signs Temp 36.8 C 03/15/21 03:54 Pulse 61 03/15/21 03:54 Resp 16 03/15/21 03:54 BP 109/68 03/15/21 03:54 Pulse Ox 99 03/15/21 03:54
--- NOTE | 2021-03-15 06:55 | PCM.DCSUM1 ---
Discharge Summary - Hospital Course Free Text/Narrative:: Stage I: Adriana is a 35-year-old 2 now para 2-0-0-2 female admitted at 39-3/7 weeks gestational age with an ABAD of 03/18/2021 was admitted for elective induction of labor. Induction of labor was initiated with Pitocin followed by AROM with resultant clear amniotic fluid. Patient made very good progress. She underwent epidural for labor analgesia. heart tones were reassuring. Contractions intensified with AROM. She progressed to complete cervical dilation by approximately 1250 hrs. on 03/14/2021. Stage II: Zhanna delivered a viable, larson, female infant named Clemencia Peterson in a left occiput anterior position. The baby was placed on mom's abdomen and umbilical cord was allowed to pulsate for approximately 3 minutes before clamping and cutting. The cord was cut by the patient was Jim. Baby's nose and mouth were bulb suctioned and the baby was dried with warm blanket. Shortly after delivery and after cord was clamped the baby went skin to skin with mom. Cord blood obtained. Umbilical cord had 3 vessels. The baby delivered at 12:59 PM on 03/14/2021. Apgars were 8 and 9. Weight was 3200 grams (7pounds, 1 ounces). There was a first-degree laceration which was repaired with a single [id number] suture of 0 Monocryl. Epidural analgesia was used for perineal laceration repair anesthesia. Patient tolerated this very well. Stage III: The placenta delivered at 1303 hrs. in a Schultze presentation, appe ared intact and complete and was discarded per patient desire. Estimated blood loss was 250 cc. Condition: Good. Patient plans to breast-feed. patient is done well. She is ambulating well, nursing without problems. She is voiding without concerns and has minimal lochia. She is desiring discharge home today. Diagnosis: Stroke: No - Discharge Data Discharge Date: 03/15/21 Discharge Disposition: Home, Self-Care 01 Condition: Good - Referral to Home Health Primary Care Physician: Neal Alas MD - Discharge Diagnosis/Problem(s) (1) 39 weeks gestation of SNOMED Code(s): 89939867 ICD Code: Z3A.39 - 39 WEEKS GESTATION OF Status: Acute Current Visit: No - Patient Instructions Diet: Regular Diet as Tolerated (Nursing diet with increased calories and calcium as recommended) Activity: As Tolerated (No intercourse or tampons until bleeding resolves) Driving: May Drive Today Showering/Bathing: May Shower (May take a bath) Notify Provider of: Fever, Increased Pain, Swelling and Redness, Nausea and/or Vomiting - Discharge Plan Home Medications: Home Meds RX: Ferrous Sulfate [Iron] 325 mg PO BID 12/05/19 [History] RX: #103/Iron Fumarate/Fa [ ] 1 each PO DAILY 12/05/19 [History] RX: Acetaminophen [Tylenol] 650 mg PO Q4H PRN tablet 03/15/21 [Rx] RX: Ibuprofen [Motrin] 600 mg PO Q4H PRN tablet 03/15/21 [Rx] Referrals: Neal Alas MD [Primary Care Provider] - (Return to [facility] weeks.) - Discharge Summary/Plan Comment DC Time >30 min.: No Discharge Summary/Plan Comment: Discharge instructions: 1. Discharge home 2. Diet, activity and follow-up discussed with patient. Recommend nursing diet with increased calories and calcium. 3. Precautions given concern increased pain, bleeding, temperature, signs/symptoms of DVT/PE. 4. Medications per home medication was printed, discussed with and given to the patient. 5. Return to clinic-Dr. Alas[facility] in 2 weeks. Diagnosis: Term -delivered Condition: Good - Patient Data Vitals - Most Recent: Last Vital Signs Temp 36.8 C 03/15/21 03:54 Pulse 61 03/15/21 03:54 Resp 16 03/15/21 03:54 BP 109/68 03/15/21 03:54 Pulse Ox 99 03/15/21 03:54 Weight - Most Recent: 90.265 kg I&O - Last 24 hours: Intake & Output 03/14/21 03/14/21 03/15/21 14:59 22:59 06:59 Intake Total 4500 Output Total 55 Balance 3966 Lab Results - Last 24 hrs: Laboratory Results - last 24 hr 03/14/21 Range/Units 03:14 RPR Non-reactive (NONREACTIVE) Med Orders - Current: Current Medications Acetaminophen (Acetaminophen 325 Mg Tab) 650 mg PO Q4H PRN PRN Reason: mild pain or fever Benzocaine/Menthol (Benzocaine/Menthol 20%-0.5% Anton 56 Gm Canister) 0 gm TOP ASDIRECTED PRN PRN Reason: Perineal Comfort Measure Last Admin: 03/14/21 15:13 Dose: 1 can Documented by: Docusate Sodium (Docusate Sodium 100 Mg Cap) 100 mg PO BID PRN PRN Reason: Constipation Last Admin: 03/14/21 20:41 Dose: 100 mg Documented by: Ibuprofen (Ibuprofen 600 Mg Tab) 600 mg PO Q4H PRN PRN Reason: Mild pain or fever Last Admin: 03/14/21 20:41 Dose: 600 mg Documented by: Prenat Multivit/Dental Specialist/Iron/Folic Ac ( Multivitamin With Calcium/Folic Acid/Iron Tab) 1 each PO DAILY FINN Witch Muriel (Witch Muriel Medicated Pads 40/Jar) 1 pad TOP ASDIRECTED PRN PRN Reason: Perineal Comfort Measure Last Admin: 03/14/21 15:13 Dose: 1 tub Documented by: Discontinued Medications Acetaminophen (Acetaminophen 325 Mg Tab) 650 mg PO Q4H PRN PRN Reason: Pain (Mild 1-3) and fever Calcium Carbonate/Glycine (Calcium Carbonate 500 Mg Tab.Chew) 1,000 mg PO Q2H PRN PRN Reason: Indigestion Diphenhydramine HCl (Diphenhydramine 50 Mg/Ml Sdv) 25 mg IVPUSH Q6H PRN PRN Reason: pruritis Ephedrine Sulfate (Ephedrine 50 Mg/Ml Sdv) 5 mg IVPUSH ASDIRECTED PRN PRN Reason: Hypotension Fentanyl (Fentanyl 100 Mcg/2 Ml Sdv) 100 mcg EPIDUR Q3H PRN PRN Reason: Pain Last Admin: 03/14/21 10:01 Dose: 100 mcg Documented by: Fentanyl/Bupivacaine HCl (Bupivacaine/Fentanyl/Ns 100 Ml Bag) 100 ml EPIDUR ASDIRECTED PRN PRN Reason: Pain Last Admin: 03/14/21 10:02 Dose: 100 ml Documented by: Oxytocin/Lactated Ringer's (Pitocin In Lr 10 Units/1,000 Ml) 10 unit in 1,000 mls @ 12 mls/hr IV TITRATE FINN; Protocol Last Titration: 03/14/21 12:10 Dose: 10 munits/min, 60 mls/hr Documented by: Oxytocin/Lactated Ringer's (Pitocin In Lr 10 Units/1,000 Ml) 10 unit in 1,000 m ls @ 500 mls/hr IV .CONTINUOUS FINN Lactated Ringer's (Ringers, Lactated) 1,000 mls @ 100 mls/hr IV ASDIRECTED FINN Last Infusion: 03/14/21 10:42 Dose: 100 mls/hr Documented by: Nalbuphine HCl (Nalbuphine 10 Mg/1 Ml Vial) 10 mg IVPUSH Q2H PRN PRN Reason: Pain Ondansetron HCl (Ondansetron 4 Mg/2 Ml Sdv) 4 mg IVPUSH Q4H PRN PRN Reason: Nausea/Vomiting Sodium Chloride (Sodium Chloride 0.9% 10 Ml Syringe) 10 ml FLUSH ASDIRECTED PRN PRN Reason: Keep Vein Open
[2021-03-15] MEDS ORDERED: Prenatal Multivitamin with Calcium/Folic Acid/Iron Tab PO SCH (09:00)
== END 2021-03-15 13:45 | disposition home or self-care (01) | DRG 807 ==
LOC: JD.OB 02:51 → OBSVTOIN 12:59 → JD.OB 13:00
PROVIDERS: ADMIT Obstetrics & Gynecology; ATTEND Obstetrics & Gynecology
PROC: 10E0XZZ Delivery of Products of Conception, External Approach (ICD-10-PCS; principal; 2021-03-14)
PROC: 10907ZC Drainage of Amniotic Fluid, Therapeutic from Products of Conception, Via Natural or Artificial Opening (ICD-10-PCS; 2021-03-14)
PROC: 3E033VJ Introduction of Other Hormone into Peripheral Vein, Percutaneous Approach (ICD-10-PCS; 2021-03-14)
PROC: 0HQ9XZZ Repair Perineum Skin, External Approach (ICD-10-PCS; 2021-03-14)
PROC: 3E0R3BZ Introduction of Anesthetic Agent into Spinal Canal, Percutaneous Approach (ICD-10-PCS; 2021-03-14)
DX: O99.62 Diseases of the digestive system complicating childbirth (principal); Z37.0 Single live birth; K21.9 Gastro-esophageal reflux disease without esophagitis; O70.0 First degree perineal laceration during delivery; Z20.822 Contact with and (suspected) exposure to COVID-19; Z3A.39 39 weeks gestation of pregnancy
CPT/HCPCS: 01967; 36415; 51702; 59025; 59409; 85025; 86592; 86803; 86850; 86900; 86901; A9270-GY; J2590; J3010; J3490; J7120; U0002

== ENCOUNTER 2022-08-04 05:25 | Inpatient (IN) | payer BC ==
[2022-08-04] MEDS ORDERED: Lactated Ringers 1,000 ML IV ONE (05:52)
[2022-08-04] MEDS ORDERED: Citric Acid/Sodium Citrate Solution 30 ML Cup PO ONE (06:56)
[2022-08-04] MEDS ORDERED: Metoclopramide 10 MG/2 ML SDV IV ONE (06:56)
[2022-08-04] MEDS ORDERED: Ondansetron 4 MG/2 ML SDV IV ONE (08:00)
[2022-08-04] MEDS ORDERED: Ketorolac 30 MG/ML SDV IVPUSH ONE (08:30)
[2022-08-04] MEDS ORDERED: Oxytocin/Lactated Ringers 10 UNIT/1,000 ML BAG IV ONE (09:30)
[2022-08-04] MEDS ORDERED: Dextrose 5%-Lactated Ringers 1,000 ML IV ONE (11:50)
[2022-08-05] MEDS ORDERED: Acetaminophen/oxyCODONE 325-5 MG Tab PO ONE (11:00)
[2022-08-05] MEDS ORDERED: Ibuprofen 600 MG Tab PO ONE (14:10)
[2022-08-06] MEDS ORDERED: Ibuprofen 600 MG Tab PO ONE (06:48)
== END 2022-08-06 10:30 | disposition home or self-care (01) | DRG 540 ==
LOC: JD.ZCENSUS 05:25
PROVIDERS: ADMIT Obstetrics & Gynecology; ATTEND Obstetrics & Gynecology
PROC: 10D00Z1 Extraction of Products of Conception, Low, Open Approach (ICD-10-PCS; principal; 2022-08-04)
DX: O44.43 Low lying placenta NOS or without hemorrhage, third trimester (principal); Z37.0 Single live birth; Z3A.37 37 weeks gestation of pregnancy
CPT/HCPCS: 01961; 36415; 59025; 85025; 86592; 86850; 86900; 86901; A9270-GY; J1885; J2405; J2590; J2765; J7120; J7121